=== PATIENT | male | born 1955 | race Caucasian/White ===

== ENCOUNTER 2016-05-31 14:30 | Emergency (ER) | payer OTHER | END 2016-05-31 16:10 | disposition home or self-care (01) | LOC: ER1 14:30 | DX: S62.632A Displaced fracture of distal phalanx of right middle finger, initial encounter for closed fracture (principal); Z95.1 Presence of aortocoronary bypass graft; W20.8XXA Other cause of strike by thrown, projected or falling object, initial encounter; Y92.009 Unspecified place in unspecified non-institutional (private) residence as the place of occurrence of the external cause | CPT/HCPCS: 29130; 73130; 99283 ==

== ENCOUNTER → 2016-08-17 | Outpatient (CLI) | payer OTHER | LOC: US 15:00 | DX: I73.9 Peripheral vascular disease, unspecified (principal) | CPT/HCPCS: 93922; 93925 ==